=== PATIENT | female | born 1975 | race Caucasian/White ===

== ENCOUNTER 2020-05-24 09:07 | Outpatient (CLI) | payer MEDICARE, MEDICAID, SELFPAY ==
--- NOTE | 2020-05-29 22:35 | WPDPFTINT ---
PFT Interpretation PFT Interpretation: DOS: 05/24/2020 REQUESTING: Dr Newell REASON FOR TESTING: COPD PULMONARY FUNCTION TESTS Results are reproducible. Spirometry: FEV1 is 68%, mildly decreased. FVC is 62%, mildly decreased. The FEV1% is normal. No bronchodilator was given. Lung volumes: TLC is mildly reduced at 68% consistent with a mild restrictive pattern. RV/TLC is increased consistent with air trapping. Airway resistance is 165% increased. Diffusion: DLCO is 50%, moderately decreased. Flow volume loop: Abnormal. IMPRESSION: Mild restrictive pattern, air trapping which implies an obstructive process, and a moderate diffusion defect. This may represent two different processes such as ILD and asthma, or one condition which can cause both obstructive and restrictive changes such as sarcoidosis. Clinical correlation is advised. Tami Rodriguez MD
== END 2020-05-24 09:08 | disposition home or self-care (01) ==
PROVIDERS: PCP Family Medicine; Visit Provider Family Medicine
DX: J44.9 Chronic obstructive pulmonary disease, unspecified (principal); R94.2 Abnormal results of pulmonary function studies
CPT/HCPCS: 94375; 94726; 94729